=== PATIENT | female | born 1985 | race Hispanic/Latino ===

== ENCOUNTER 2016-11-27 22:39 | Inpatient (IN) | payer MEDICAID ==
[~2016-11-27] VITALS: Ht 129.5 cm; Wt 68.1 kg
[~2016-11-27 22:39] MED LIST: DOCU-41 PO; FERR-83 PO; IBUP-1827 PO; PREN-148 PO
[2016-11-27 22:56] VITALS: BP 142/80; PULSE 115; O2SAT 97
--- NOTE | 2016-11-27 23:12 | ED.REPORT ---
HPI-General Illness Date of Service Nov 27, 2016 ED Provider: Dr. Giovani Lopez M.D. A 31 year old female with a history of endometritis presents to the ED with dizziness, described as "room spinning," onset 1600 today. The patient also reports nausea, lightheadedness, generalized numbness, and malaise. She denies vomiting, headache, hearing changes, or other symptoms. The patient has had similar symptoms while four months ago, associated with hypokalemia and Vitamin D deficiency. Nursing Notes Stated Complaint: NAUSEA, DOESNT FEEL VERY WELL Chief Complaint: General Complaint Nursing Notes Reviewed: Yes Allergies: Coded Allergies: No Known Allergies (Verified , 06/22/07) Scheduled Docusate Sodium (Colace) 100 Mg Capsule 100 MG PO DAILY Ferrous Sulfate (Ferrous Sulfate) 325 Mg Tablet 325 MG PO DAILY Vit No.124/Iron/FA ( Vitamin Tablet) 27 Mg Iron-800 Mcg Tablet 1 EACH PO DAILY Scheduled PRN Ibuprofen (Ibuprofen) 600 Mg Tablet 600 MG PO Q6H PRN PRN For Mild Pain General Time Seen by MD: 23:11 Chief Complaint Dizziness Hx Obtained From: Patient Arrived By: Walk-in Sudden in Onset?: Yes Onset Occurred: 5 - 8 hours ago Symptom Duration: Since onset Severity: Current: No pain currently Severity: Maximum: No pain Associated with: Reports: Nausea, Denies: Fever, Vomiting Pertinent Negative: Relieved by nothing Recent Healthcare: No recent doctor visit Similar Sx Previous: Yes Past Medical History Past Medical History Vaginal delivery 07/27/2016 UTI endometritis Past Surgical History Cholecystectomy D&C 2003 Smoking History Never Smoker Social History Other Social History: Good social support, Ambulatory Status Independent Review of Systems - Hearing changes Full Review of Systems Constitutional: Reports: Malaise, Denies: Fever Respiratory: Denies: Non-productive cough, Shortness of breath GI: Reports: Nausea, Denies: Vomiting Neurologic: Reports: Dizziness, Lightheaded, Numbness (Generalized), Denies: Headache Complete sys rev & neg: except as marked. Physical Exam Vital Signs Vital Signs Date Time Temp Pulse Resp B/P Pulse Ox O2 Delivery O2 Flow Rate FiO2 11/28/16 01:28 104 110/70 97 Room Air 11/27/16 22:56 36.8 115 142/80 97 Room Air Initial VS: Reviewed Neck: Supple, Full range of motion Respiratory: Breath sounds normal, Clear to auscultation, No respiratory distress Cardiovascular: Regular rate & rhythm, Heart sounds normal Skin: Warm, Dry, No cyanosis Neurologic: Alert, Oriented, Nonfocal Psychiatric: Mood/affect normal, Behavior normal, Normal thought content General/Constitutional: Awake, Alert Head / Eyes: Atraumatic, Normocephalic Eye Movement: Positive: Nystagmus present (with lateral gaze) ENT: Airway patent, Tympanic membs NL, Ext aud canal NL Face is symmetric Interpretation & Diagnostics URINE TEST: Negative Lab Results Interpretation Result Diagram: 11/27/16232611/27/162326 Test 11/27/16 23:27 11/27/16 23:37 11/28/16 00:04 White Blood Count 14.2th/mm3 (3.8-10.1) Red Blood Count 4.11mil/mm3 (3.90-5.20) Hemoglobin 12.2g/dL (12.0-15.6) Hematocrit 34.8% (35.0-46.0) Mean Corpuscular Volume 84.7fL (81-100) Mean Corpuscular Hemoglobin 29.7pg (27.0-35.0) Mean Corpuscular Hemoglobin Concent 35.1% (32.0-37.0) Red Cell Distribution Width 11.3% (12.3-15.4) Platelet Count 270bil/L (150-400) Neutrophils (%) (Auto) 88.5% (40-74) Lymphocytes (%) (Auto) 8.6% (14-46) Monocytes (%) (Auto) 2.5% (4-12) Eosinophils (%) (Auto) 0% (0-5) Basophils (%) (Auto) 0.1% (0-3) Band Neutrophils % 0% (1-5) Prothrombin Time 10.0sec (8.1-12.5) Prothromb Time International Ratio 0.94ratio Activated Partial Thromboplast Time 28.0sec (22.8-33.0) Sodium Level 120mEq/L (134-144) Potassium Level 3.4mEq/L (3.5-5.2) Chloride Level 83mEq/L (97-108) Carbon Dioxide Level 18mmol/L (18-29) Blood Urea Nitrogen 12mg/dL (6-20) Creatinine 0.36mg/dL (0.57-1.00) Estimat Glomerular Filtration Rate 0mL/min (>59) Glucose Level 156mg/dL (60-99) Calcium Level 8.7mg/dL (8.5-10.1) Total Bilirubin 0.3mg/dL (0.0-1.2) Aspartate Amino Transf (AST/SGOT) 26U/L (0-50) Alanine Aminotransferase (ALT/SGPT) 30U/L (0-32) Alkaline Phosphatase 53U/L (25-150) Total Protein 7.2g/dL (6.4-8.4) Albumin 4.5g/dL (3.4-5.0) Alcohols 10mg/dL (0-10) Magnesium Level 1.5mg/dL (1.6-2.6) Urine Color Straw (YELLOW) Urine Appearance Clear (CLEAR,HAZY) Urine pH 5.5 (5.0-8.0) Urine Specific [place] <1.005 (1.003-1.035) Urine Protein Negativemg/dL (NEG,TRACE) Urine Glucose (UA) Negativemg/dL (NEGATIVE) Urine Ketones Negativemg/dL (NEGATIVE) Urine Occult Blood Small (NEGATIVE) Urine Nitrite Negative (NEGATIVE) Urine Bilirubin Negative (NEGATIVE) Urine Urobilinogen Normalmg/dL (NORMAL) Urine Leukocyte Esterase Negative (NEGATIVE) Urine RBC 0-2/hpf (0-2) Urine WBC 0-5/hpf (0-5) Urine Epithelial Cells Occasional/hpf (NONE-MOD) Urine Crystals Amorphous urates (NONE Urine Bacteria None/hpf (NONE-FEW) Urine Hyaline Casts None/lpf (NONE) Urine Granular Casts None seen (NONE SEEN) Urine Waxy Casts None seen (NONE SEEN) Urine Red Blood Cell Casts None seen (NONE SEEN) Urine White Blood Cell Casts None seen (NONE SEEN) Urine Mucus None seen (None Seen) Urine Trichomonas None seen (NONE SEEN) Urine Yeast None (NONE SEEN) Urinalysis Comment None Urine Culture Reflexed Not indicated Urine Random Sodium 46mEq/L Urine Random Potassium 16.0mEq/L Urine Random Chloride 35mEq/L CT Head Interpretation CONCLUSION: Normal. Transmitted to ED by Jose Self M.D. at 11/28/16 - 12:23:48 AM PDT Study: Head CT no contrast Interpretation / Wet Read by: Interpret - Radiologist Re-Eval/Medical Decision Med Decision/Clinical Course 31-year-old female presents with well described vertigo, but also muscular twitching and hyperreflexia. She is grossly hyponatremic and also hypokalemic, as well as mildly hypomagnesemic. She has been drinking fluids antibiotics at direction of her doctor, when she reported feeling "dizzy. She may just diluted herself down to substantial hyponatremia. Her muscle twitching and clonus on exam may relate to her right toe tingling and hyponatremia. Calcium is actually normal along with albumin. She is admitted now for monitoring of her sodium and replacement, with replacement also of her magnesium and potassium ongoing. Source of Hx: Old records Time of Eval: 02:25 Patient Status: Condition improved Re-Evaluation/Progress Note: Patient is feeling better but her symptoms have not completely resolved. She now reports lower extremity muscle spasms and exhibits patellar reflex clonus on exam. The patient has been drinking an excess of water lately. Discussed with patient CT and lab results, diagnosis, and plan for admit. Patient agrees with plan for care and all questions were addressed. Consultation : Referral / Consult Name: Lacy Mcgarry MD Consulted With: Hospitalist Call Returned at: 02:42 Print Shop Stenographer: Agrees with eval, Agrees with plan, Accepts admit Counseled Regarding: Diagnosis, Lab results, Need for admission Discharge & Departure Shift Change Sign-Out Response to Therapy: Improved Primary Impression: Hyponatremia Additional Impressions: Hypokalemia Clonus Disposition: ADMITTED TO HOSPITAL Discharge Condition All VS Reviewed: Yes Condition: Improved Referrals: Madhavi Hatch MD (PCP) [place] Attestation Portions of this note were transcribed by Rae Turner. I, Dr. Lopez, personally performed the history, physical exam, and medical decision-making; I reviewed and confirmed the accuracy of the information in the transcribed note. Signed by: Carlos Manzano, 11/28/2016, 04:55 copies to: Madhavi Hatch MD, Christopher W MD Nov 27, 2016 23:12 RAE TURNER Nov 27, 2016 23:20
[2016-11-27] MEDS ORDERED: 0.9% Sodium Chloride 1,000 ML IV ONE (23:15)
[2016-11-27 23:53] LABS: BASOPHILS % (AUTO) 0.1 % (0-3); EOSINOPHILS % (AUTO) 0 % (0-5); MONOCYTES % (AUTO) 2.5 % (4-12); Mean Corpuscular Hemoglobin 29.7 pg (27.0-35.0); Mean Corpuscular Volume 84.7 fL (81-100); NEUTROPHILS % (AUTO) 88.5 % (40-74); Platelet Count 270 bil/L (150-400)
[2016-11-28] VITALS (8 sets, daily range): BP systolic 93–110; BP diastolic 60–70; PULSE 89–118; RESP 16–18; O2SAT 94–97
[2016-11-28] LABS: INR 0.94 ratio
[2016-11-28 00:25] LABS: APPEARANCE,URINE CLEAR (CLEAR,HAZY); COLOR,URINE STRAW (YELLOW); OCCULT BLOOD,URINE SMALL (NEGATIVE); PH,URINE 5.5 (5.0-8.0); UROBILINOGEN,URINE NORMAL (NORMAL)
[2016-11-28] MEDS ORDERED: Potassium Chloride Inj 20 MEQ in Dextrose 5% 250 ML IV ONE (02:30)
[2016-11-28] MEDS ORDERED: 0.9% Sodium Chloride 1,000 ML IV ONE (02:30)
[2016-11-28] MEDS ORDERED: Polyethylene Glycol (PEG) 17 Gm Powder PO PRN (03:20)
[2016-11-28] MEDS ORDERED: Alum-Mag Hydrox-Simeth 30 mL Suspension PO PRN (03:20)
[2016-11-28] MEDS ORDERED: Ondansetron 2 mg/mL 2 mL Inj IVPUSH PRN (03:20)
[2016-11-28] MEDS ORDERED: Magnesium Sulf 2 Gm/50mL Water 2 GM in IV Premix 1 EACH IV ONE ×2 (03:45→05:15)
--- NOTE | 2016-11-28 04:34 | PCM.HPMED ---
Subjective Date of Service Nov 28, 2016 Primary Provider: Admitting Physician: Lacy Mcgarry MD Primary Care Physician: Madhavi Hatch MD Attending Physician: Lacy Mcgarry MD Admit Status: From the Emergency Department Chief Complaint: Dizziness and nausea History of Present Illness: 31-year-old female with history of sepsis from UTI, endometritis, and most recent 07/27/2016 presents with dizziness that has been progressively worsening over the last couple days. She reports feeling dizzy with the room spinning, she has been nauseous without vomiting, she had one short episode of lower abdominal pain yesterday however does not report any current abdominal pain. She reports numbness and tingling in her feet and worsening vertigo with lateral gaze. Her primary care provider recently told her to increase her fluid intake as dehydration could be contributing to her symptoms of dizziness. She does report having similar symptoms . Patient's fourth delivery resulted in blood loss, endometritis the day after delivery, and sepsis from a UTI within the week after delivery. Patient has been able to breast-feed however she has had difficulty producing an adequate milk supply despite feeding every 2-3 hours. She supplements with formula after breast-feeding 3 times a day. She reports some shortness of breath however is not currently having any. She reports some recent confusion, no vomiting, cough, sore throat , or runny nose. In the emergency department patient is afebrile, tachycardic initially at 1:15 BPM, and hypertensive at 142/80. After receiving 1 L normal saline and 0.5 mg Ativan patient heart rate was 104, and blood pressure 110/70. Laboratory evaluation reveals white blood cell count 14.2 with 88.5% neutrophils. No evidence of urinary tract infection, serum electrolytes are decreased with a sodium of 120, potassium 3.4, chloride 83, magnesium 1.5, and normal kidney function. Allergies Coded Allergies: No Known Allergies (Verified , 06/22/07) Home Medications vitamin Vitamin D3 PMH UTI leading to sepsis Endometritis with most recent 07/27/2016 Surgical History Cholecystectomy Dilation and curettage 2004 Family History Mother with coronary artery disease Uncle with diabetes Social History Hx Alcohol Use: No Hx Substance Use: No Hx Tobacco Use: No Smoking Status: Never Smoker Living Arrangement: with Family Exam Vital Signs Vital Sign - Last Date Time Temp Pulse Resp B/P Pulse Ox O2 Delivery O2 Flow Rate FiO2 11/28/16 01:28 104 110/70 97 Room Air 11/27/16 22:56 36.8 Intake and Output 11/27/16 11/27/16 11/28/16 Cumulative From/Thru 15:00 23:00 07:00 11/27/16 22:56 - 11/28/16 03:05 Intake Total 2000 ml 2000 ml Output Total 4500 ml 4500 ml Balance -2500 ml -2500 ml Intake IV Total 2000 ml 2000 ml Output Urine Total 4500 ml 4500 ml Exam General: No acute distress, well-developed, well-nourished, appropriately interactive HEENT: Normocephalic, atraumatic. External ears without defect. Pupils equal, round, and reactive to light and accommodation. Anicteric sclerae, moist conjunctivae, and no lid lag. Oropharynx free of erythema and cobble stoning with moist mucosa. Neck: Supple with full range of motion. No jugular venous distension. No lymphadenopathy or thyromegaly. Cardiovascular: Regular rate and rhythm with no murmurs, rubs, or gallops appreciated Pulmonary: Clear to auscultation bilaterally with no crackles, wheezes, or rhonchi. Normal respiratory effort with no use of accessory muscles. Abdomen: Bowel tones present. Soft, nontender, nondistended. No hepatosplenomegaly or masses appreciated. Extremities: No clubbing, cyanosis, edema, or lymphadenopathy appreciated. Skin: Normal temperature, turgor, and texture; no rash, ulcers, or subcutaneous nodules appreciated. Neurological: Hyperreflexic symmetrically with greater than 3 beats clonus and Achilles and patellar tendons. Cranial nerves grossly intact. Normal muscle strength, tone, and bulk. No known gait impairment. Psychiatric: Normal mood and affect. Alert and oriented to person, place, and time. Lab and Diagnostics Result Diagram: 11/27/16232611/27/162326 X-Rays, CTs and MRIs Preliminary read of noncontrast head CT is normal Assessment & Plan 31-year-old female with history of sepsis from UTI, endometritis, and most recent 07/27/2016 presents with dizziness that has been progressively worsening over the last couple days and is found to have low electrolytes. 1. Hyponatremia, present on admission, acute - Likely related to polydipsia - Free water fluid restriction - Patient received 2 L NS in the emergency department - Continue to monitor with BMP in the a.m. - Urine sodium, chloride, and osmolality ordered - Serum osmolality ordered 2. 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 Hypokalemia, present on admission, acute - 20 mEq potassium given IV. - Continue to monitor with BMP in the a.m. - Urine potassium ordered 4. Hypomagnesemia, present on admission, acute - 2 g magnesium sulfate given IV - Continue to monitor with BMP in the a.m. 5. Systemic inflammatory response, present on admission, acute - Patient presented with pulse of 115 and white blood cell count of 14.2 - Tachycardia resolved with fluid administration, elevated white blood cell count could be related to stress response from breast-feeding. - No infectious source apparent at this time - Urinalysis does not indicate infection, patient without respiratory symptoms however if symptoms persist chest x-ray may be warranted. - Continue to monitor, CBC a.m. Acetaminophen for mild pain when necessary. Bowel regimen Senna and MiraLAX PRN. Zofran when necessary for nausea and vomiting. DVT prophylaxis with sub cutaneous Lovenox Patient was admitted under inpatient status with expected length of stay greater than 2 midnights due to severity of presenting symptoms, risk of adverse event, and complexity of treatment plan. Pain Evaluation: Adequate Pain Control GI Prophylaxis: Not indicated VTE Prophylaxis: Sub-Q Enoxaparin Resuscitation Status: CPR: Attempt Resuscitation Attending Statement Pt seen and examined by myself and agree with above plan. copies to: Madhavi Hatch MD, Erika R DO Nov 28, 2016 04:34 Lacy Mcgarry MD Nov 28, 2016 06:14
--- NOTE | 2016-11-28 06:22 | NUR ---
Admit to [facility] [place] received phone report from ED at 0314, at 0418 pt arrived to floor per stretcher, accompanied by and traffic control technician, pt reports weakness, unable to ambulate to bed, pt slovenian speaking, electronic spray unit feeder utilized, pt alert/oriented able to make needs known, IVF and K rider infusing on RAC, 20G, patent, pt denies pain, oriented pt to call light system, pt able to void to BSC, 1 pa r/t reports of dizziness, tele leads placed, sinus rhytm per technician telecommunication systems at this time, call light in reach.
[2016-11-28 07:33] LABS: BASOPHILS % (AUTO) 0.2 % (0-3); EOSINOPHILS % (AUTO) 0.2 % (0-5); MONOCYTES % (AUTO) 7.6 % (4-12); Mean Corpuscular Hemoglobin 29.4 pg (27.0-35.0); Mean Corpuscular Volume 83.8 fL (81-100); NEUTROPHILS % (AUTO) 71.6 % (40-74); Platelet Count 299 bil/L (150-400)
[2016-11-28 07:43] LABS: Magnesium 3.1 mg/dL (1.6-2.6)
[2016-11-28] MEDS ORDERED: CHOL10008 PO (08:49)
--- NOTE | 2016-11-28 09:51 | DRSVH ---
PROCEDURE: CT BRAIN WITHOUT CONTRAST ([id number]) INDICATIONS: Stroke TECHNIQUE: Noncontrast 4.5 mm thick angled axial sections acquired from the foramen magnum to the vertex, with c oronal reformats. COMPARISON: None. FINDINGS: Image quality: Excellent. CSF spaces: Basal cisterns are patent. No extra-axial fluid collections. Ventricles are normal in size and shape. Brain: No midline shift. No intracranial masses or hemorrhage. Sotner-white matter interface is norm al. Skull and face: Calvarium and visualized facial bones are intact, without suspicious lesions. Sinuses: Visualized sinuses and mastoids are clear. IMPRESSION: No acute intracranial disease process. Dictated by: Bhakti Galeana MD, PhD on 11/28/2016 at 9:43 Approved by: Bhakti Galeana MD, PhD on 11/28/2016 at 9:49
--- NOTE | 2016-11-28 12:18 | DRSVH ---
PROCEDURE: MRI PITUITARY W/WO CONTRAST ([id number]) INDICATIONS: possible hypopituitary TECHNIQUE: Noncontrast sagittal and axial FLAIR, axial gradient echo, axial diffusion and ADC through the brain. Thin-slice sagittal and coronal T1 spin echo, coronal T2 fast spin echo through the pituitary. Aft er the administration contrast, optional dynamic coronal T1 spin echo, thin-slice coronal and sagitta l T1 spin echo images through the pituitary fossa; axial T1 spin echo with fat saturation through the brain. COMPARISON: None. FINDINGS: Image quality: Excellent. Pituitary Gland: Pituitary gland has normal size and contour. The posterior pituitary bright spot is normally situated. Pituitary infundibulum is normal in thickness. There is normal postcontrast enhanc ement of the pituitary gland and pituitary infundibulum with no areas of relatively post contrast-enh ancement. The cavernous sinus enhances normally. No suprasellar masses are identified. Optic chiasm i s normal. CSF Spaces: Ventricles are normal in size and shape. Basal cisterns are patent. No extra-axial flu id collections. Brain: No intracranial bleeds or mass effects. No abnormal intracranial enhancement. Stoner-white ma tter interface is intact. Diffusion weighted images demonstrate no acute ischemic insults. Brainste m is normal. Normal intravascular flow voids are present. Skull and face: Calvarial marrow is normal in signal. Orbits appear normal. Sinuses: Sinuses and mastoids are clear. IMPRESSION: Negative examination. Dictated by: Bhakti Galeana MD, PhD on 11/28/2016 at 12:11 Approved by: Bhakti Galeana MD, PhD on 11/28/2016 at 12:17
--- NOTE | 2016-11-28 16:55 | NUR ---
Activity/Dizziness: Patient has been up adlib in her room today. Her has been in her room to assist her to ambulate to the BR.Patient has not c/o being dizzy when she ambulates today and she has been in her room relaxing in her bed with out complaints for most of the day.
--- NOTE | 2016-11-28 19:03 | PCM.PNMED ---
Subjective Date of Service Nov 28, 2016 Subjective The patient is feeling much better and has no more dizziness. She has no nausea or vomiting. No other new complaints. Exam Vital Signs Vital Sign - Last Date Time Temp Pulse Resp B/P Pulse Ox O2 Delivery O2 Flow Rate FiO2 11/28/16 17:05 36.8 89 16 93/60 96 Room Air Intake and Output 11/27/16 11/27/16 11/28/16 Cumulative From/Thru 15:00 23:00 07:00 11/27/16 22:56 - 11/28/16 06:42 Intake Total 2300 ml 2300 ml Output Total 7550 ml 7550 ml Balance -5250 ml -5250 ml Intake Oral 0 ml 0 ml IV Total 2300 ml 2300 ml Output Urine Total 7550 ml 7550 ml Exam General: Patient is in no apparent distress. She is lying supine in bed with head slightly elevated. HEENT: Head is atraumatic and normocephalic. Eyes: Pupils are equally round and reactive to light and accommodation. Extraocular muscles are intact. Sclera are white, anicteric. Subconjunctival mucosa is pink. Ears and nose are unremarkable. Oropharynx: There are no mucosal lesions, there is no thrush , there is no pharyngitis. Neck: Is supple, there are no nodes, or masses or tenderness. Chest: Is clear to auscultation and percussion. There are no rales, rhonchi, wheezes or rubs. Heart: Rate, rhythm is regular. There is no murmur, rub or gallop. Abdomen: Good bowel sounds are present. Abdomen is obese, soft, nontender, no organomegaly or masses were appreciated. Extremities: Are symmetrical and well perfused. There is no edema, there is no cellulitis, no rash. Neurologic: There are no focal neurological deficits. Cranial nerves II through XII are intact. There are no sensory or motor deficits. Psychiatric: Patients mood is calm and shows no sign of agitation. Genital: Pelvic exam is deferred Rectal: Deferred Lab and Diagnostics Result Diagram: 11/28/16 0645 11/28/16 0645 X-Rays, CTs and MRIs Preliminary read of noncontrast head CT is normal Assessment & Plan 31-year-old female with history of sepsis from UTI, endometritis, and most recent 07/27/2016 presents with dizziness that has been progressively worsening over the last couple days and is found to have low electrolytes. 1. Hyponatremia, present on admission, acute - Likely related to polydipsia. Patient does admit to me that she was told to drink more water and she has been doing just that. In fact she has been drinking an excessive amount of water. - Free water fluid restriction - Patient received 2 L NS in the emergency department - Continue to monitor with BMP in the a.m. - Urine sodium, chloride, and osmolality ordered - Serum osmolality ordered 2. 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 3. Hypokalemia, present on admission, acute and potassium has been corrected - 20 mEq potassium given IV. - Continue to monitor with BMP in the a.m. - Urine potassium ordered - We will repeat serum potassium in a.m. 4. Hypomagnesemia, present on admission, acute - 2 g magnesium sulfate given IV - Continue to monitor with BMP in the a.m. - We will repeat serum magnesium in a.m. 5. Systemic inflammatory response, present on admission, acute - Patient presented with pulse of 115 and white blood cell count of 14.2 - Tachycardia resolved with fluid administration, elevated white blood cell count could be related to stress response from breast-feeding. - No infectious source apparent at this time - Urinalysis does not indicate infection, patient without respiratory symptoms however if symptoms persist chest x-ray may be warranted. - Continue to monitor, we will repeat CBC a.m. Acetaminophen for mild pain when necessary. Bowel regimen Senna and MiraLAX PRN. Zofran when necessary for nausea and vomiting. DVT prophylaxis with sub cutaneous Lovenox Disposition: We will repeat labs in a.m. and if patient is stable and labs are normalized, patient will likely be discharged in a.m. Pain Evaluation: Adequate Pain Control GI Prophylaxis: Not indicated VTE Prophylaxis: Sub-Q Enoxaparin VTE Mechanical Devices: Intermittant Pneumatic CD Resuscitation Status: CPR: Attempt Resuscitation Giovani Siu MD Nov 28, 2016 19:03
[2016-11-29 01:25] VITALS: BP 94/59; PULSE 66; RESP 16; O2SAT 97
--- NOTE | 2016-11-29 04:37 | NUR ---
Dizziness Patient reports dizziness with ambulation. denies pain/discomfort. vital signs stable. at bedside assisting patient. japanese interpreter used for assessment. no needs or questions at this time. will continue to monitor.
[2016-11-29 05:58] VITALS: PULSE 73
[2016-11-29 06:42] VITALS: BP 97/63; PULSE 70; RESP 14; O2SAT 98
[2016-11-29 08:00] VITALS: PULSE 91
[2016-11-29 09:01] VITALS: BP 92/60; PULSE 87; RESP 16; O2SAT 97
[2016-11-29 09:17] LABS: BASOPHILS % (AUTO) 0.4 % (0-3); EOSINOPHILS % (AUTO) 1.8 % (0-5); MONOCYTES % (AUTO) 8.3 % (4-12); Mean Corpuscular Volume 88.2 fL (81-100); NEUTROPHILS % (AUTO) 55.3 % (40-74); Platelet Count 262 bil/L (150-400)
[2016-11-29 09:55] LABS: Phosphorus 4.5 mg/dL (2.5-4.9)
[2016-11-29] MEDS ORDERED: Potassium Chloride 20 mEq SR Tablet PO ONE (10:35)
--- NOTE | 2016-11-29 10:48 | PCM.DIMED ---
Discharge Instructions Date of Service Nov 29, 2016 Dates of Hospitalization Nov 28, 2016 at 03:04 Discharge Diagnosis Discharge Diagnosis Hyponatremia with dizziness Diet Heart Healthy Activity No restrictions (Patient may return to usual activities gradually as tolerated.) Call your provider Fever or Chills, Shortness of breath, Bleeding, Chest pain, Vomitting, Excessive diarrhea, Weakness (unilateral), Other Patient Instructions Follow-up Provider: Madhavi Hatch MD Follow-up with PCP in: 1 week Giovani Siu MD Nov 29, 2016 10:48
--- NOTE | 2016-11-29 10:53 | NUR ---
Social Work: Screening / D/C Data: Pt is on day 1 of hospitalization. Pt's PCP is Dr Hatch, pt's insurance is [facility] Medicaid. EMR reviewed, no readmit score listed. No AD/DPOA, pt declined information. No further d/c planning needs. [facility] will continue to follow if needs arise. Assessment: Pt who is independent at baseline. Plan: Pt will d/c home via POV today. No further d/c planning needs. [facility] will continue to follow if needs arise. JEAN CLAUDE Moralez
--- NOTE | 2016-11-29 14:54 | NUR ---
Discharge Nursing Note: Patient was discharged to home at 1455. Her IV was discontinued intact. All of her discharge information was reviewed with her with the cleater on a stick to translate and all of her questions were answered to her satisfaction.Deja was brought in a wheelchair to the hospital lobby by nursing staff member and she was driven to home by her .
--- NOTE | 2016-11-29 22:14 | PCM.DC.MED ---
Discharge Summary Date of Service Nov 29, 2016 Dates of Hospitalization Date of Hospital Admission Nov 28, 2016 at 03:04 Date of Discharge: Nov 29, 2016 Providers: Admitting Physician: Lacy Mcgarry MD Primary Care Physician: Madhavi Hatch MD Attending Physician: Lacy Mcgarry MD Diagnosis at Time of Discharge Diagnosis at Time of Discharge Hyponatremia with dizziness Procedures XRay, CTs & MRIs Preliminary read of noncontrast head CT is normal Brief History The patient is a 31-year-old female with history of sepsis from UTI, endometritis, and most recent 07/27/2016 presents with dizziness that has been progressively worsening over the last couple days. She reports feeling dizzy with the room spinning, she has been nauseous without vomiting, she had one short episode of lower abdominal pain yesterday however does not report any current abdominal pain. She reports numbness and tingling in her feet and worsening vertigo with lateral gaze. Her primary care provider recently told her to increase her fluid intake as dehydration could be contributing to her symptoms of dizziness. She does report having similar symptoms . Patient's fourth delivery resulted in blood loss, endometritis the day after delivery, and sepsis from a UTI within the week after delivery. Patient has been able to breast-feed however she has had difficulty producing an adequate milk supply despite feeding every 2-3 hours. She supplements with formula after breast-feeding 3 times a day. She reports some shortness of breath however is not currently having any. She reports some recent confusion, no vomiting, cough, sore throat, or runny nose. In the emergency department patient is afebrile, tachycardic initially at 1:15 BPM, and hypertensive at 142/80. After receiving 1 L normal saline and 0.5 mg Ativan patient heart rate was 104, and blood pressure 110/70. Laboratory evaluation reveals white blood cell count 14.2 with 88.5% neutrophils. No evidence of urinary tract infection, serum electrolytes are decreased with a sodium of 120, potassium 3.4, chloride 83, magnesium 1.5, and normal kidney function. Patient was admitted to the hospital service for further evaluation and treatment. Hospital Course Patient is a 31-year-old female with history of sepsis from UTI, endometritis, and most recent 07/27/2016 presents with dizziness that has been progressively worsening over the last couple days and is found to have low electrolytes. 1. Hyponatremia, present on admission, acute and now resolved and stable with sodium 138. - Likely related to polydipsia. Patient does admit to me that she was told to drink more water and she has been doing just that. In fact she has been drinking an excessive amount of water. - Free water fluid restriction - Patient received 2 L NS in the emergency department - Continue to monitor with BMP in the a.m. - Urine sodium, chloride, and osmolality ordered - Serum osmolality ordered 2. 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 3. Hypokalemia, present on admission, acute and potassium has been corrected - 20 mEq potassium given IV. - We Continued to monitor and correct electrolytes as needed. - Urine potassium ordered 4. Hypomagnesemia, present on admission, acute - 2 g magnesium sulfate given IV 5. Systemic inflammatory response, present on admission, acute - Patient presented with pulse of 115 and white blood cell count of 14.2 - Tachycardia resolved with fluid administration, elevated white blood cell count could be related to stress response from breast-feeding. - No infectious source apparent at this time. The patient's white blood cell count has normalized - Urinalysis does not indicate infection, patient without respiratory symptoms however if symptoms persist chest x-ray may be warranted. Acetaminophen for mild pain when necessary. Bowel regimen Senna and MiraLAX PRN. Zofran when necessary for nausea and vomiting. DVT prophylaxis with sub cutaneous Lovenox Disposition: We will discharge home today. Exam Vital Signs (Last) Date Time Temp Pulse Resp B/P Pulse Ox O2 Delivery O2 Flow Rate FiO2 11/29/16 09:01 37.1 87 16 92/60 97 Room Air Exam General: Patient is in no apparent distress. She is lying supine in bed with head slightly elevated. HEENT: Head is atraumatic and normocephalic. Eyes: Pupils are equally round and reactive to light and accommodation. Extraocular muscles are intact. Sclera are white, anicteric. Subconjunctival mucosa is pink. Ears and nose are unremarkable. Oropharynx: There are no mucosal lesions, there is no thrush , there is no pharyngitis. Neck: Is supple, there are no nodes, or masses or tenderness. Chest: Is clear to auscultation and percussion. There are no rales, rhonchi, wheezes or rubs. Heart: Rate, rhythm is regular. There is no murmur, rub or gallop. Abdomen: Good bowel sounds are present. Abdomen is obese, soft, nontender, no organomegaly or masses were appreciated. Extremities: Are symmetrical and well perfused. There is no edema, there is no cellulitis, no rash. Neurologic: There are no focal neurological deficits. Cranial nerves II through XII are intact. There are no sensory or motor deficits. Psychiatric: Patients mood is calm and shows no sign of agitation. Genital: Pelvic exam is deferred Rectal: Deferred Test 11/27/16 23:27 11/28/16 00:04 11/28/16 03:28 11/28/16 23:27 Band Neutrophils % 0% (1-5) Prothrombin Time 10.0sec (8.1-12.5) Prothromb Time International Ratio 0.94ratio Activated Partial Thromboplast Time 28.0sec (22.8-33.0) Alcohols 10mg/dL (0-10) Urine Color Straw (YELLOW) Urine Appearance Clear (CLEAR,HAZY) Urine pH 5.5 (5.0-8.0) Urine Specific [place] <1.005 (1.003-1.035) Urine Protein Negativemg/dL (NEG,TRACE) Urine Glucose (UA) Negativemg/dL (NEGATIVE) Urine Ketones Negativemg/dL (NEGATIVE) Urine Occult Blood Small (NEGATIVE) Urine Nitrite Negative (NEGATIVE) Urine Bilirubin Negative (NEGATIVE) Urine Urobilinogen Normalmg/dL (NORMAL) Urine Leukocyte Esterase Negative (NEGATIVE) Urine RBC 0-2/hpf (0-2) Urine WBC 0-5/hpf (0-5) Urine Epithelial Cells Occasional/hpf (NONE-MOD) Urine Crystals Amorphous urates (NONE Urine Bacteria None/hpf (NONE-FEW) Urine Hyaline Casts None/lpf (NONE) Urine Granular Casts None seen (NONE SEEN) Urine Waxy Casts None seen (NONE SEEN) Urine Red Blood Cell Casts None seen (NONE SEEN) Urine White Blood Cell Casts None seen (NONE SEEN) Urine Mucus None seen (None Seen) Urine Trichomonas None seen (NONE SEEN) Urine Yeast None (NONE SEEN) Urinalysis Comment None Urine Culture Reflexed Not indicated Urine Random Sodium 46mEq/L Urine Random Potassium 16.0mEq/L Urine Random Chloride 35mEq/L Urine Osmolality 252mOs/kH2O (250-1200) Osmolality 259 (275-300) Thyroid Stimulating Hormone (TSH) 0.721uIU/mL (0.450-4.500) Free Thyroxine 1.12ng/dL (0.82-1.77) Hold Rodríguez Top Tube Received (Received) Test 11/29/16 08:50 White Blood Count 7.1th/mm3 (3.8-10.1) Red Blood Count 4.33mil/mm3 (3.90-5.20) Hemoglobin 13.0g/dL (12.0-15.6) Hematocrit 38.2% (35.0-46.0) Mean Corpuscular Volume 88.2fL (81-100) Mean Corpuscular Hemoglobin 30.0pg (27.0-35.0) Mean Corpuscular Hemoglobin Concent 34.0% (32.0-37.0) Red Cell Distribution Width 12.5% (12.3-15.4) Platelet Count 262bil/L (150-400) Neutrophils (%) (Auto) 55.3% (40-74) Lymphocytes (%) (Auto) 33.9% (14-46) Monocytes (%) (Auto) 8.3% (4-12) Eosinophils (%) (Auto) 1.8% (0-5) Basophils (%) (Auto) 0.4% (0-3) Sodium Level 138mEq/L (134-144) Potassium Level 3.6mEq/L (3.5-5.2) Chloride Level 103mEq/L (97-108) Carbon Dioxide Level 19mmol/L (18-29) Blood Urea Nitrogen 15mg/dL (6-20) Creatinine 0.59mg/dL (0.57-1.00) Estimat Glomerular Filtration Rate 173mL/min (>59) Glucose Level 118mg/dL (60-99) Calcium Level 9.4mg/dL (8.5-10.1) Phosphorus Level 4.5mg/dL (2.5-4.9) Magnesium Level 2.0mg/dL (1.6-2.6) Total Bilirubin 0.3mg/dL (0.0-1.2) Aspartate Amino Transf (AST/SGOT) 25U/L (0-50) Alanine Aminotransferase (ALT/SGPT) 34U/L (0-32) Alkaline Phosphatase 51U/L (25-150) Total Protein 6.8g/dL (6.4-8.4) Albumin 4.2g/dL (3.4-5.0) Discharge Medications Discharge Medications Cholecalciferol (Vitamin D3) (Vitamin D3) 1,000 Unit Tab.chew 1,000 UNIT PO DAILY (Reported) Vit No.124/Iron/FA ( Vitamin Tablet) 27 Mg Iron-800 Mcg Tablet 1 EACH PO DAILY Prescribed by: SANDHYA ANDRADE MD Followup Plan Disposition: The patient is being discharged home. Discharge Diet: Heart Healthy Discharge Activity: No restrictions (Patient may return to usual activities gradually as tolerated.) Follow-up Provider: Madhavi Hatch MD Follow-up with PCP in: 1 week Time spent Time spent on discharging this patient was greater than 35 minutes, over half of which was involved in counseling and coordination of care. Giovani Siu MD Nov 29, 2016 22:14
== END 2016-11-29 14:45 | disposition home or self-care (01) | DRG 641 ==
LOC: SED 22:39 → OBSVTOIN 11-28 03:04 → MPC 11-28 03:04
PROVIDERS: ADMIT Specialist; ATTEND Specialist
DX: E87.1 Hypo-osmolality and hyponatremia (principal); R65.10 Systemic inflammatory response syndrome (SIRS) of non-infectious origin without acute organ dysfunction; E23.0 Hypopituitarism; E87.6 Hypokalemia; E83.42 Hypomagnesemia; R42 Dizziness and giddiness; Z87.440 Personal history of urinary (tract) infections; R63.1 Polydipsia